=== PATIENT | male | born 1955 | race Caucasian/White ===

== ENCOUNTER → 2023-10-09 15:29 | Outpatient (REF) | payer MEDICARE, BC, SELFPAY | LOC: DHCBS HW 15:29 | PROVIDERS: ATTENDING PHYSICIAN Internal Medicine Cardiovascular Disease; FAMILY PHYSICIAN Internal Medicine | DX: Z01.818 Encounter for other preprocedural examination (principal); I50.30 Unspecified diastolic (congestive) heart failure; R06.02 Shortness of breath | CPT/HCPCS: 93306 ==

== ENCOUNTER → 2023-10-10 11:22 | Outpatient (REF) | payer MEDICARE, BC, SELFPAY | LOC: DHCBC/DCA 11:22 | PROVIDERS: ATTENDING PHYSICIAN Internal Medicine Cardiovascular Disease; FAMILY PHYSICIAN Internal Medicine | DX: Z01.818 Encounter for other preprocedural examination (principal); I50.30 Unspecified diastolic (congestive) heart failure; R06.02 Shortness of breath | CPT/HCPCS: 78452; 93017; A9500; J2785 ==

== ENCOUNTER 2025-08-09 21:45 | Inpatient (IN) | payer MEDICARE, SELFPAY ==
[2025-08-09 13:24] VITALS: BP 129/68
[2025-08-09 13:44] LABS: Hematocrit 37.2 % (39.0-52.0); Hemoglobin 11.6 g/dL (13.0-18.0); Mean Corp Hgb Conc. 31.2 g/dL (33.0-37.0); Mean Corpuscular Volume 74.3 fL (80.0-94.0); Nucleated Red Blood Cells % 0 % (-); Platelet Count 158 10^3/uL (130-400); Red Cell Dist. Width 18.2 % (11.5-14.5)
[2025-08-09 14:02] LABS: ALT (SGPT) 31 U/L (0-50); AST (SGOT) 27 U/L (17-59); Albumin 3.9 g/dl (3.5-5.0); Alkaline Phosphatase 101 U/L (38-126); Blood Urea Nitrogen 24 mg/dl (9-20); Calcium 8.6 mg/dl (8.4-10.2); Carbon Dioxide 22 mmol/L (22-30); Chloride 107 mmol/L (98-107); Glucose 236 mg/dl (70-99); Potassium 4.4 mmol/L (3.5-5.1); Sodium 135 mmol/L (135-145); Total Protein 6.5 g/dl (6.3-8.2); eGFR > 60.00
[2025-08-09 14:06] LABS: Troponin I < 0.012 ng/ml
--- NOTE | 2025-08-09 15:24 | ED.GENMED ---
History of Present Illness
General
Chief Complaint: Chest Pain
Source: patient
Exam Limitations: none
Time Seen by Provider: 08/09/25 15:04
Nursing documentation reviewed up to this point in time: agreed with
History of Present Illness
History of Present Illness:
Note:
CHIEF COMPLAINT(S)
Chest pain.
HISTORY OF PRESENT ILLNESS
The patient is a 70-year-old male with a history of cardiac stents placed previously. He presents with chest pain, reporting the onset as yesterday. He describes the pain as reminiscent of previous episodes when stents were placed. He denies any new
swelling in his legs but mentions they are 'always a little bit swollen.' There is no recent weight gain reported, but there is slight shortness of breath noted primarily in the morning. As of the current evaluation, he continues to experience chest
pain. The patient states it does not worsen with arm movement or positional change such as sitting up or lying back. He mentions having been short of breath upon walking today. His medical appliance maker, Dr. Kevin Lazo, was last seen some time ago, and the
patient had to cancel a recent appointment due to scheduling issues.
EXTERNAL RECORDS REVIEWED
According to current investigations, the patients electrocardiogram is normal, and initial blood work, despite showing a slightly elevated blood glucose level, appears normal overall.
PHYSICAL EXAM
General: Alert, no acute distress.
Cardiovascular: No new edema reported, normal cardiovascular findings.
Respiratory: Breath sounds are normal; lungs sound clear.
PLAN
The plan is to administer a full dose of aspirin and some nitroglycerin to assess its effect on the chest pain. The patient will also undergo a chest X-ray and a repeat of the relevant blood tests for further evaluation.
DIFFERENTIAL DIAGNOSIS
The Differential Diagnosis includes, in no particular order and is not limited to:
1. Acute Coronary Syndrome (ACS)
2. Stable Angina
3. Unstable Angina
4. Myocardial Infarction
5. Costochondritis
6. Gastroesophageal Reflux Disease (GERD)
7. Pulmonary Embolism
8. Aortic Dissection
9. Heart Failure
10. Anxiety-related chest pain
CARE-UPDATE
08/09/25 - 21:16
CT chest results indicate bilateral pulmonary embolism with mild clot burden and mild right ventricular strain. Initiated IV heparin therapy. Plan for admission under hospitalist care.
EKG
My independent EKG interpretation is:
- Time of EKG: Not specified
- Rhythm: Normal sinus rhythm
- Heart Rate: 72 beats per minute
- GA Interval: Normal
- QRS Duration: Normal
- QT Interval: Normal
- [place]: Normal
- ST Segment: Normal
- Abnormalities: None observed; normal EKG
Disposition:
SUMMARY OF ENCOUNTER
The patient, a 70-year-old male with a history of cardiac stents, presented to the emergency department with chest pain that began the previous day and shortness of breath upon exertion. His pain was described as similar to episodes experienced when
stents were placed. A CT chest scan confirmed the presence of bilateral pulmonary embolism with mild clot burden and mild right ventricular strain. The decision was made to initiate IV heparin therapy given the diagnosis. Despite the findings, the
patients vital signs remained stable with no indication for thrombolytic therapy at this time.
DISPOSITION
Admit to Intermediate Care Unit (IMU) for further monitoring and management.
ASSESSMENT
Bilateral pulmonary embolism with mild clot burden and mild right ventricular strain.
EMERGENCY TREATMENTS ADMINISTERED
IV heparin initiated.
PLAN
The patient is to be admitted to the Intermediate Care Unit for continuous monitoring and management of bilateral pulmonary embolism.
INDEPENDENT REVIEW OF LABS AND INTERPRETATION OF TESTS
My independent review of EKG shows normal sinus rhythm with a heart rate of 72 beats per minute, normal GA interval, normal QRS duration, normal QT interval, and no abnormalities observed; the EKG is normal.
My independent CT chest interpretation indicates bilateral pulmonary embolism with mild clot burden and mild right ventricular strain.
MEDICATION RECONCILIATION
Heparin administered intravenously for anticoagulation purposes.
MEDICAL DECISION MAKING
-Complexity of Data Reviewed: Chronic conditions affecting care include cardiac stents history. Differential Diagnosis includes Acute Coronary Syndrome, Stable Angina, Unstable Angina, Myocardial Infarction, Costochondritis, Gastroesophageal Reflux
Disease, Pulmonary Embolism, Aortic Dissection, Heart Failure, and Anxiety-related chest pain.
-Data:
Category 1
My independent interpretation of the CT chest confirms bilateral pulmonary embolism with mild clot burden and mild right ventricular strain.
-Risk:
Hospital admission was decided due to the complexity and risk associated with the confirmed diagnosis of bilateral pulmonary embolism.
DIAGNOSIS
Pulmonary embolism, bilateral (ICD-10: I26.09)
Phy Exam
Physical Exam
Physical Exam:
.
Scores
Heart Score for Chest Pain Patients
STEMI patient?: Not applicable
Course
Orders/Labs/Results
Orders:
Orders
08/09/25 13:17
Electrocardiogram (*1) Urgent
Reason for Study: Chest Pain
Cardiac Monitoring- Treatment ONCE
EKG- Treatment ONCE
IV Insert/Care/Rem.- Treatment PRN
O2 Therapy [RESP] Urgent
Titrate/Wean O2 to maintain O2 sat greater than (%): 90
Special Instructions: Maintain sats >/=90%
Pulse Ox/spot Check [RESP] Urgent
Quantity: 1
Special Instructions: ON ROOM AIR
08/09/25 13:34
Complete Blood Count/With Diff Urgent
Comprehensive Metabolic Panel Urgent
NT-proBNP Urgent
Comment: ADD ON
Troponin I Urgent
08/09/25 15:06
Add On- LAB Urgent
Tests Added?: pro bnp
08/09/25 15:07
CR Chest - 2 Views Urgent
Comment:
Reason For Exam: short of breath
08/09/25 15:53
Aspirin Chewable [Low Strength Aspirin] 324 mg PO NOW STA
Nitroglycerin Sublingual [Nitrostat (Sublingual)] 0.4 mg SL NOW STA
08/09/25 17:03
D-Dimer Urgent
08/09/25 18:44
CT Chest PE Study Urgent
Comment:
Reason For Exam: short of breath, ddimer elevated
08/09/25 21:12
PTT Urgent
Comment: Obtain baseline before beginning heparin infusion if not already collected
Heparin 9,000 units IV NOW STA
Pharmacy Request to Place See Dose Instructions PO NOW STA
Discontinue all Active Warfarin orders?: Yes
Nursing to Place Non Medication Order As Directed
Physician Order: PTT 6 hours after initial start of Heparin infusion
08/09/25 21:15
Heparin 59165 Units/250 ml 25,000 units in 250 ml IV PER PROTOCOL
Weight to be used for heparin protocol in kilograms (kg):: 112
Protocol:: DVT/PE
PTT Goal Range to be used:: PTT 73 to 111 seconds
Order type:: Initial
INITIAL Infusion Dose (UNITS/KG/hr) & then follow protocol:: 18 units/kg/hr
Infusion Dose in UNITS/hr & then follow protocol (UNITS/hr):: 2,000
INFUSION RATE in mL/hr & then follow protocol (mL/hr):: 20
For DVT/PE algorithm, re-bolus for low PTT?: Yes
PTT less than or equal to 64 seconds:: Re-bolus 80 units/kg (max 10,000units). Increase by 500 units/hr
(+ 5mL/hr)
PTT 64.1 to 72.9 seconds:: Re-bolus 40 units/kg (max 5,000 units). Increase by 200 units/hr
(+ 2mL/hr)
PTT 73 to 111 seconds:: Target Range. No change in rate.
PTT 111.1 to 130.9 seconds:: Decrease rate by 200 units/hr (- 2 mL/hr)
PTT 131 to 199.9 seconds:: HOLD for 1 hr. Then decrease by 400 units/hr (- 4mL/hr)
PTT greater than or equal to 200 seconds:: HOLD for 2 hrs & Notify Provider. Then decrease by 500 units/hr
(- 5mL/hr)
Lab follow-up:: Each change, PTT q6h until 2 consecutive are therapeutic. Then
PTT daily.
08/09/25 22:[address] See Dose Instructions IV DIRECTED
Abnormal Lab Results
08/09/25 08/09/25
13:34 17:03
Hgb 11.6 L g/dL
(13.0-18.0)
Hct 37.2 L %
(39.0-52.0)
MCV 74.3 L fL
(80.0-94.0)
MCH 23.2 L pg
(27.0-31.0)
MCHC 31.2 L g/dL
(33.0-37.0)
RDW 18.2 H %
(11.5-14.5)
Absolute Neuts (auto) 6.7 H 10^3/uL
(1.4-6.5)
Absolute Lymphs (auto) 1.1 L 10^3/uL
(1.2-3.4)
Neutrophils % 79.9 H %
(42.2-75.2)
Lymphocytes % 13.2 L %
(20.5-51.1)
D-Dimer 2.02 H ug/mlFEU
(0.00-0.50)
BUN 24 H mg/dl
(9-20)
Glucose 236 H mg/dl
(70-99)
Total Bilirubin 1.4 H mg/dl
(0.2-1.3)
08/09/25 13:34
08/09/25 13:34
Vital Signs
Initial and Last Documented VS:
Initial Vital Signs
Temp Pulse Resp BP Pulse Ox
98.6 F 75 16 129/68 97
08/09/25 13:24 08/09/25 13:24 08/09/25 13:24 08/09/25 13:24 08/09/25 13:24
Last Documented Vital Signs
Temp Pulse Resp BP Pulse Ox
98.7 F 61 20 112/69 97
08/09/25 16:08 08/09/25 20:45 08/09/25 20:45 08/09/25 18:00 08/09/25 20:45
*Pulse Oximetry
SaO2: 97
Oxygen Mode of Delivery: Room air
Patient hypoxic: no
*Critical Care Note
Total Time (30-74mins, 75-104mins- exclusive of procedures): 30
comment:
Critical care statement: A total of 30 minutes of critical care time was provided for this patient. This includes management of unstable vital signs, evaluation of the patient at bedside, reviewing the patient's pertinent medical records, discussion
with consultants, review of old EKGs and review of pertinent medical records. This time with separate from time utilized to perform the aforementioned documented procedures
ED Attending Note
-
Portions of this chart may have been created with voice recognition software.� Occasional wrong word or��sound alike� substitutions may have occurred due to the inherent limitations of voice recognition software.
Discharge Plan
Departure
Patient Disposition: Admit
Date of Disposition: 08/09/25
Time of Disposition: 21:11
Admit to: IMU
Presentation/result/management discussed w/ accepting MD/DO: Hospitalist
Patient with high blood pressure during this ER visit?: Yes
Condition: Fair
Discharge Problem:
Pulmonary embolism, bilateral
Prescriptions:
No Action
Simponi ARIA 50 MG/4 ML solution
250 mg IV [id number]
prednisone 5 MG tablet
15 mg PO Q48H
prednisone 5 MG tablet
5 mg PO Q48H
aspirin 81 MG tablet,chewable
81 mg PO DAILY
latanoprost 0.005 % Drops
1 drp LEFT EYE HS
atorvastatin [Lipitor] 80 mg Tablet
80 mg PO DAILY
trazodone 100 mg Tablet
100 mg PO HS
magnesium oxide 500 mg magnesium Tablet
500 mg PO HS
gabapentin 300 mg Capsule
300 mg PO HS
nebivolol [Bystolic] 5 mg Tablet
5 mg PO DAILY
Jardiance 10 mg Tablet
10 mg PO DAILY
pantoprazole 40 MG tablet,delayed release (DR/EC)
40 mg PO DAILY
Theragen Tablet
1 tab PO DAILY
Referrals:
VINH ABDALLA, DO [Family Provider]
Interventions
Interventions:
*Risk Screen - Suicide Last Done: 08/09/25 13:24
*General Assessment Last Done: 08/09/25 16:05
*Neglect/Abuse Screening Last Done: 08/09/25 16:06
*ED COVID-19 Vaccine History Last Done: 08/09/25 16:05
*ED Influenza Vaccine History Last Done: 08/09/25 16:05
[facility] Fall Risk Assessment Tool Last Done: 08/09/25 17:31
ED- Cardiac Assessment Last Done: 08/09/25 16:05
Discharge Date and Time
Print Language: EGYPTIAN
[2025-08-09] MEDS: LOW STRENGTH ASPIRIN 324 MG PO (16:01)
[2025-08-09] MEDS: NITROSTAT (SUBLINGUAL) 0.4 MG SL (16:01)
[2025-08-09 16:02] VITALS: BP 108/49
[2025-08-09 16:04] VITALS: BMI 33.5
[2025-08-09 17:00] VITALS: BP 106/67
[2025-08-09 17:35] LABS: D-Dimer 2.02 ug/mlFEU (0.00-0.50)
[2025-08-09 18:00] VITALS: BP 112/69
--- NOTE | 2025-08-09 21:33 | HPS.HSE ---
Family Physician
-
Family Physician: VINH ABDALLA DO
Chief Complaint
-
chest pain
History of Present Illness
70 male history of CAD s/p PCI, RA, HLD, GERD presents with a 2-day history of constant chest discomfort that is left-sided radiating into his left shoulder and armpit region. Dull ache worse with inspiration. Not relieved by analgesics. Tells me
3 weeks ago received COVID-19 vaccine made by [employer].
CT PE completed demonstrating bilateral pulmonary embolism with mild right heart strain. Troponin and BNP negative/low. Nontachycardic and not hypoxic. Started on heparin drip
Medical History
Past Medical History
Past Medical History: Reports CAD and GERD
Past Surgical History: Reports Other
Social History
Alcohol: None
Family History
Family History: Not pertinent
Allergies / Home Medications
Allergies reflects when Allergies were last updated in [facility].
Home Medications with original date entered in [facility]
Allergy/Medication List:
Allergies
Allergy/AdvReac Type Severity Reaction Status Date / Time
Sulfa (Sulfonamide Allergy Rash Verified 08/09/25 13:27
Antibiotics)
Home Medications
golimumab 12.5 mg/mL intravenous solution (Simponi ARIA) 250 mg IV [id number] 05/27/19
aspirin 81 mg chewable tablet 81 mg PO DAILY Blood Clot Prevention/Tx 09/14/21
prednisone 5 mg tablet 5 mg PO Q48H 09/14/21
prednisone 5 mg tablet 15 mg PO Q48H 09/14/21
atorvastatin 80 mg tablet (Lipitor) 80 mg PO DAILY High Cholesterol 08/09/25
empagliflozin 10 mg tablet (Jardiance) 10 mg PO DAILY 08/09/25
gabapentin 300 mg capsule 300 mg PO HS Neurological Condition 08/09/25
latanoprost 0.005 % eye drops 1 drp LEFT EYE HS Eye Condition 08/09/25
magnesium oxide 500 mg PO HS Supplement 08/09/25
nebivolol 5 mg tablet (Bystolic) 5 mg PO DAILY Heart Disease/Condition 08/09/25
pantoprazole 40 mg tablet,delayed release 40 mg PO DAILY Gastrointestinal Issue 08/09/25
therapeutic multivitamin 1 tab PO DAILY Supplement 08/09/25
trazodone 100 mg tablet 100 mg PO HS Sleep 08/09/25
Review of Systems
-
A 12 point ROS was completed and negative except as noted: Yes
Physical Exam
Vital Signs
Vital Signs
Temp Pulse Resp BP Pulse Ox
98.7 F 61 20 112/69 97
08/09/25 16:08 08/09/25 20:45 08/09/25 20:45 08/09/25 18:00 08/09/25 20:45
Physical Exam
General: Well Developed, Well Nourished and No Apparent Distress
HEENT: NormoCephalic and Moist mucous membranes; No Anicteric
Respiratory: Clear; No Wheezes, Rales or Rhonchi
Cardiac: S1/S2 and Regular Rhythm
GI: Soft, Non Tender and Non Distended
Musculoskeletal: No No Clubbing or No Cyanosis
Skin: Warm and Dry
Neuro: Awake and AO x 3
Hematologic/Lymphatic: No Lymphadenopathy
Psych: Calm
Laboratory Results
-
08/09/25 13:34
08/09/25 13:34
Laboratory Results
Total Bilirubin 1.4 mg/dl (0.2-1.3) H 08/09/25 13:34
AST 27 U/L (17-59) 08/09/25 13:34
ALT 31 U/L (0-50) 08/09/25 13:34
Alkaline Phosphatase 101 U/L (38-126) 08/09/25 13:34
Troponin I < 0.012 ng/ml 08/09/25 13:34
Impression/Plan
-
Acute unprovoked pulmonary embolism
? Related to COVID-19 Moderna vaccine
Will need outpatient hematology follow-up for hypercoagulable workup in 3 months
Heparin drip
As there is evidence of mild right heart strain will obtain 2D echocardiogram
Likely can transition to Eliquis/Xarelto tomorrow
Will consult case management for pricing
CAD s/p PCI
Continue aspirin statin Bystolic
GERD
Protonix
RA
Prednisone
Scheduled to receive Simponi infusion tomorrow will need to be rescheduled
Full Code
DVT ppx Hep gtt
[2025-08-09] MEDS: HEPARIN 9000 UNITS IV (21:43)
[2025-08-09] MEDS: HEPARIN 25000 UNITS/250 ML IV (21:44)
[2025-08-09 21:51] LABS: APTT 27.9 Sec (23.4-35.0)
[2025-08-09 23:27] VITALS: BP 150/80; BMI 33.3
[2025-08-10] MEDS: LIPITOR 80 MG PO ×2 (00:06→17:34)
[2025-08-10] MEDS: NEURONTIN 300 MG PO ×2 (00:06→20:59)
[2025-08-10] MEDS: DESYREL 100 MG PO ×2 (00:07→20:59)
[2025-08-10] MEDS: MAGNESIUM OXIDE 400 MG PO ×2 (00:07→20:59)
[2025-08-10 03:02] VITALS: BP 106/62
[2025-08-10 03:57] LABS: Hematocrit 32.4 % (39.0-52.0); Hemoglobin 10.2 g/dL (13.0-18.0); Mean Corp Hgb Conc. 31.5 g/dL (33.0-37.0); Mean Corpuscular Volume 74.8 fL (80.0-94.0); Platelet Count 143 10^3/uL (130-400); Red Cell Dist. Width 17.8 % (11.5-14.5)
[2025-08-10 04:18] LABS: Blood Urea Nitrogen 19 mg/dl (9-20); Calcium 8.2 mg/dl (8.4-10.2); Carbon Dioxide 26 mmol/L (22-30); Chloride 108 mmol/L (98-107); Estimated Creatinine Clearance > 125 ml/min; Glucose 162 mg/dl (70-99); Potassium 3.7 mmol/L (3.5-5.1); Sodium 137 mmol/L (135-145); eGFR > 60.00
[2025-08-10 04:26] LABS: APTT > 200 Sec (23.4-35.0)
[2025-08-10 08:51] VITALS: BP 115/63
[2025-08-10] MEDS: DELTASONE 5 MG PO (09:33)
[2025-08-10] MEDS: PROTONIX 40 MG PO (09:33)
[2025-08-10] MEDS: FARXIGA 10 MG PO (09:33)
--- NOTE | 2025-08-10 10:07 | CM ---
CM consulted for Eliquis coverage/pricing (10mg BID x7 days, followed by 5 mg BID)
Patient has [facility] Rx plan. CM placed call to [facility], Eliquis covered.
30 day supply co pay of $105, 90 day mail order co pay of $309
CM was informed patient has a max quantity of twice a day, anything more than that requires a prior auth ([phone])
Updated current hospitalist as previous hospitalist placed the order
--- NOTE | 2025-08-10 11:05 | CON.PUL ---
Consultation
Consultation Request
Date/Time Consultation Requested: 08/10/2025-10 AM
Date/Time Consultation Performed: 08/10/2025-10:30 AM
Requesting Provider: Hospitalist
Performing Provider: Dr. Yo
Reason for Consultation: Shortness of breath/pulm embolism
Medical History
-
Chief Complaint: Shortness of breath
History of Present Illness:
70-year-old nonsmoking somewhat sedentary male with a history of CAD/stent, rheumatoid arthritis, hyperlipidemia and GERD, presented with left-sided chest discomfort as well as shortness of breath, recently had covid mRNA vaccine 3 weeks prior found
to have pulmonary emboli-pulmonary consulted for pulmonary embolism 08/10/25. The patient feels improved. He's been placed on a heparin drip. Denies any shortness of breath at rest but does have some chest discomfort that is made worse with deep
inspiration but not pleuritic, left anterior. Denies any abdominal pain, nausea, increased Leg swelling from his baseline or focal weakness.
Past Medical History
Past Medical History: None ( CAD/stent. Hyperlipidemia. GERD. RA. Obesity.)
Social History
Tobacco: Non-smoker
Alcohol: None
Drug: None
Personal:
Living: With Family
Occupational Exposures: no known asbestos exposure
Environmental Exposures: No known tuberculosis exposure
Family History
Family History: Reviewed & Not Pertinent (No family history of clots)
Allergies / Home Medications
Allergies
Allergy/AdvReac Type Severity Reaction Status Date / Time
Sulfa (Sulfonamide Allergy Rash Verified 08/09/25 13:27
Antibiotics)
Home Medications
�Medication �Instructions �Recorded �Confirmed �Last Taken �Type
golimumab 12.5 mg/mL intravenous 250 mg IV [id number] 05/27/08/09/25 2 Months Ago History
solution (Simponi ARIA) ~06/09/25
aspirin 81 mg chewable tablet 81 mg PO DAILY Blood Clot 09/14/21 08/09/25 08/09/25 History
Prevention/Tx
prednisone 5 mg tablet 5 mg PO Q48H 09/14/21 08/09/25 08/08/25 History
prednisone 5 mg tablet 15 mg PO Q48H 09/14/21 08/09/25 08/09/25 History
atorvastatin 80 mg tablet (Lipitor) 80 mg PO DAILY High Cholesterol 08/09/25 08/09/25 08/09/25 History
empagliflozin 10 mg tablet 10 mg PO DAILY 08/09/25 08/09/25 08/09/25 History
(Jardiance)
gabapentin 300 mg capsule 300 mg PO HS Neurological Condition 08/09/25 08/09/25 08/08/25 History
latanoprost 0.005 % eye drops 1 drp LEFT EYE HS Eye Condition 08/09/25 08/09/25 08/08/25 History
magnesium oxide 500 mg PO HS Supplement 08/09/25 08/09/25 08/08/25 History
nebivolol 5 mg tablet (Bystolic) 5 mg PO DAILY Heart 08/09/25 08/09/25 08/09/25 History
Disease/Condition
pantoprazole 40 mg tablet,delayed 40 mg PO DAILY Gastrointestinal 08/09/25 08/09/25 08/09/25 History
release Issue
therapeutic multivitamin 1 tab PO DAILY Supplement 08/09/25 08/09/25 08/09/25 History
trazodone 100 mg tablet 100 mg PO HS Sleep 08/09/25 08/09/25 08/08/25 History
Review of Systems
-
Unable to Obtain full review of systems at this time due to: Other ( per HPI)
Vitals / Labs / Diagnostic Testing
Vital Signs
Temp Pulse Resp BP Pulse Ox
98.2 F 65 16 115/63 97
08/10/25 08:51 08/10/25 08:51 08/10/25 08:51 08/10/25 08:51 08/10/25 08:51
Lab Data
08/10/25 03:50
08/10/25 03:50
Laboratory Results
08/09/25 08/10/25
21:35 03:50
APTT 27.9 > 200 H*
Diagnostic Testing:
Physical Exam
-
Exam:
Well-nourished and well-developed in no apparent distress
HEENT-atraumatic, normocephalic
Neck-supple, no JVD, no bruit
Heart regular without increased P2 or RV heave
Chest-clear to auscultation, no wheezes, crackles
Back-no tenderness
Abdomen-soft, nontender, nondistended, no hepatosplenomegaly
Extremities-no cyanosis, clubbing, trace lower extremity edema-reportedly chronic, negative Homans
Integument-intact, no rashes, lesions or ecchymosis
Neurology-alert and oriented, nonfocal motor and sensory exam
Assessment
-
70-year-old nonsmoking somewhat sedentary male with a history of CAD/stent, rheumatoid arthritis, hyperlipidemia and GERD, presented with left-sided chest discomfort as well as shortness of breath, recently had covid mRNA vaccine 3 weeks prior found
to have pulmonary emboli-pulmonary consulted for pulmonary embolism 08/10/25.
Unprovoked bilateral pulmonary emboli with some right ventricular strain.
[id number] I-low risk
Normal Troponin and proBNP
Mild microcytic anemia-hemoglobin 10.2.
Hyperglycemia.
Conditions present prior to admission:
CAD/stent.
Hyperlipidemia.
GERD.
RA.
Obesity.
Plan
Patient will be admitted to Telemetry
Supplemental oxygen as needed
Aspiration precautions
Incentive spirometry encouraged
CT chest personally reviewed-. See below.
Echocardiogram reviewed and summarized below-no significant right ventricular strain
Check lower extremity ultrasound
Pulmonary emboli unprovoked-likely will need hypercoagulable workup
Full PESI score summarized above
Heparin drip or Lovenox 1 mg/kg every 12 hours
Benefits and risks of thrombolytics therapy were reviewed -risks outweigh benefits-no tachycardia, hypotension, syncope, troponin. ProBNP normal without significant right ventricular strain
Bedrest �24 hours
Follow hemoglobin
Consider iron studies.
Heme test stools.
Monitor blood sugar.
Check A1c.
Insulin supplementation as needed
DVT prophylaxis-on full anticoagulation-heparin with conversion to Eliquis the next 24 hours
Early nutrition
Early mobilization
Outpatient pulmonary follow-up
Outpatient appropriate malignancy screening including colonoscopy and prostate exam
Critical care statement: A total of 55 minutes of critical care time was provided for this patient today. This includes management of unstable vital signs, evaluation for thrombolytic therapy, management of large pulmonary embolism, evaluation of
the patient at bedside, reviewing the patient's pertinent medical records including radiographs, microbiology, laboratory evaluations, and discussion with primary team, consultants, pharmacy, and critical care nursing.
Diagnostic data:
Chest x-ray 08/09/25-NAD.
CT chest 08/09/25-. Bilateral lower lobe pulmonary emboli, small to moderate overall clot burden, mild right ventricular heart strain suspected, basilar atelectasis
Echocardiogram 08/10/25-EF 55-60%, normal right ventricular systolic function, mild aortic regurgitation
Data Reviewed
-
EKG: Report reviewed by me
Radiology: Image personally visualized and interpreted and Report reviewed by me
CT Scan: Image personally visualized and interpreted and Report reviewed by me
Medical Tests (Nuc Med, Echo etc): Report reviewed by me
Labs: Labs reviewed by me
Old Records: Reviewed
Total Time Spent with Patient (in minutes): 55
--- NOTE | 2025-08-10 11:23 | CM ---
Patient seen bedside, initial assessment completed. Patient is a 70 male history of CAD s/p PCI, RA, HLD, GERD presents with a 2-day history of constant chest discomfort.
Patient resides w/ spouse in a 2STH, 2 steps to enter. Patient is independent in all areas. Uses CPAP at night, has additional grab bar and shower chair in bathroom. Patient drives. No SNF/HC hx. OP PT for hip, just finished in July.
Address, point of contact and insurance verified
PCP: Carissa Tucker
Pharmacy: [facility]
CM reviewed Eliquis coverage w/ patient. CM to provide Eliquis coupon prior to d/c
Plan: Home, no needs anticipated at this time
[2025-08-10 12:00] VITALS: BP 103/59
--- NOTE | 2025-08-10 13:04 | W.PN.HOSP.TC ---
Today's Communication/Plan
-
Monitor vital signs see plan
Continue heparin drip
Awaiting echo
Eventual DOAC
Pulmonary evaluation
Assessment / Plan
Assessment / Plan
General: Well Developed, Well Nourished and No Apparent Distress
HEENT: NormoCephalic and Moist mucous membranes; No Anicteric
Respiratory: Clear; No Wheezes, Rales or Rhonchi
Cardiac: S1/S2 and Regular Rhythm
GI: Soft, Non Tender and Non Distended
Neuro: Awake and AO x 3
Psych: Calm
Acute unprovoked pulmonary embolism
Unclear if this is related to COVID-19 Moderna vaccine
Will need outpatient hematology follow-up for hypercoagulable workup in 3 months
Continue Heparin drip; eventual DOAC
echo pending
The patient he does get cancer screening with his PCP. Advised him to follow-up with them soon outpatient
Pulmonary evaluation
CAD s/p PCI
Continue aspirin statin
hold bystolic since normotensive
GERD
Protonix
RA
Prednisone
Scheduled to receive Simponi infusion today will need to be rescheduled
Full Code
DVT ppx Hep gtt
Anticipated Discharge: Within 24 hours
Subjective/Interval History
-
Date of Service: August 10, 2025
denies pain
Objective Data
-
Labs:
Laboratory Results
08/10/25 08/10/25
03:50 12:44
WBC 7.1
Hgb 10.2 L
Hct 32.4 L
Plt Count 143
APTT > 200 H* Pending
Sodium 137
Potassium 3.7
Chloride 108 H
Carbon Dioxide 26
BUN 19
Creatinine 0.7
Glucose 162 H
Calcium 8.2 L
Vital Signs:
Vital Signs
Temp Pulse Resp BP Pulse Ox
98.4 F 72 16 103/59 98
08/10/25 12:00 08/10/25 12:00 08/10/25 12:00 08/10/25 12:00 08/10/25 12:00
I&O
08/09/25 08/10/25 08/11/25
06:59 06:59 06:59
Intake Total 240 / 240
Output Total 500 / 500
Balance -260 / -260
[2025-08-10 14:00] LABS: APTT > 200 Sec (23.4-35.0)
[2025-08-10] MEDS: HEPARIN 25000 UNITS/250 ML IV (14:34)
[2025-08-10 16:00] VITALS: BP 143/77
[2025-08-10 19:25] VITALS: BP 120/68
[2025-08-10] MEDS: XALATAN OPHTHALMIC SOLUTION 1 DROP LEFT EYE (21:00)
[2025-08-10 23:07] LABS: APTT 113.7 Sec (23.4-35.0)
[2025-08-10 23:37] VITALS: BP 120/75
[2025-08-11 03:00] VITALS: BP 134/73
[2025-08-11 05:59] LABS: Hematocrit 33.7 % (39.0-52.0); Hemoglobin 10.7 g/dL (13.0-18.0); Mean Corp Hgb Conc. 31.8 g/dL (33.0-37.0); Mean Corpuscular Volume 74.1 fL (80.0-94.0); Platelet Count 138 10^3/uL (130-400); Red Cell Dist. Width 17.8 % (11.5-14.5)
[2025-08-11 06:11] LABS: APTT 72.4 Sec (23.4-35.0)
[2025-08-11] MEDS: HEPARIN 4500 UNITS IV (06:25)
[2025-08-11 06:31] LABS: ALT (SGPT) 26 U/L (0-50); AST (SGOT) 25 U/L (17-59); Albumin 3.2 g/dl (3.5-5.0); Alkaline Phosphatase 93 U/L (38-126); Blood Urea Nitrogen 14 mg/dl (9-20); Calcium 8.5 mg/dl (8.4-10.2); Carbon Dioxide 24 mmol/L (22-30); Chloride 109 mmol/L (98-107); Estimated Creatinine Clearance > 125 ml/min; Glucose 121 mg/dl (70-99); Potassium 4.0 mmol/L (3.5-5.1); Sodium 137 mmol/L (135-145); Total Protein 5.6 g/dl (6.3-8.2); eGFR > 60.00
[2025-08-11 07:00] VITALS: BP 120/74
[2025-08-11] MEDS: DELTASONE 15 MG PO (09:16)
[2025-08-11] MEDS: FARXIGA 10 MG PO (09:16)
[2025-08-11] MEDS: PROTONIX 40 MG PO (09:17)
[2025-08-11] MEDS: ELIQUIS 10 MG PO ×2 (09:17→20:16)
--- NOTE | 2025-08-11 10:53 | W.PN.PUL.V3 ---
Today's Communication / Plan
-
.
Monitor epistaxis
Assess discharge supplemental oxygen needs.
Convert heparin to oral anticoagulant-treat for 3-6 months.
Outpatient hematology evaluation.
Outpatient pulmonary/sleep disorders evaluation
Assessment
-
70-year-old nonsmoking somewhat sedentary male with a history of CAD/stent, rheumatoid arthritis, hyperlipidemia and GERD, presented with left-sided chest discomfort as well as shortness of breath, recently had covid mRNA vaccine 3 weeks prior found
to have pulmonary emboli-pulmonary consulted for pulmonary embolism 08/10/25.
Unprovoked bilateral pulmonary emboli with some right ventricular strain.
[id number] I-low risk
Normal Troponin and proBNP
Mild microcytic anemia-hemoglobin 10.2.
Hyperglycemia. .
EB suspected.
Epistaxis
Conditions present prior to admission:
CAD/stent.
Hyperlipidemia.
GERD.
RA.
Obesity.
Plan
Respiratory status relatively stable
Supplemental oxygen as needed-Currently on room air.
Rest and exercise oximetry without significant desaturations
Incentive spirometry encouraged
Monitor epistaxis-told to humidify house
CT chest personally reviewed- see below.
Echocardiogram reviewed and summarized below-no significant right ventricular strain
Lower extremity ultrasound 08/10/25-no evidence for DVT bilaterally
Pulmonary emboli unprovoked-likely will need hypercoagulable workup
Full PESI score summarized above
Heparin drip or Lovenox 1 mg/kg every 12 hours-convert to oral anticoagulants for a minimum of 3-6 months
Follow hemoglobin
Consider iron studies.
Heme test stools.
Monitor blood sugar.
Check A1c.
Insulin supplementation as needed
DVT prophylaxis-on full anticoagulation-heparin with conversion to Eliquis the next 24 hours
Early nutrition
Early mobilization
Outpatient pulmonary/sleep disorders follow-up
Outpatient appropriate malignancy screening including colonoscopy and prostate exam
Diagnostic data:
Chest x-ray 08/09/25-NAD.
CT chest 08/09/25-. Bilateral lower lobe pulmonary emboli, small to moderate overall clot burden, mild right ventricular heart strain suspected, basilar atelectasis
Echocardiogram 08/10/25-EF 55-60%, normal right ventricular systolic function, mild aortic regurgitation
Subjective Data
-
Date of Service:
Date of Service: August 11, 2025
Chief Complaint: Pulmonary Follow Up and Dyspnea Follow Up
Subjective:
Episode of nosebleed, resolved, no complaints of worsened shortness of breath, still some vague anterior chest pains,
Review of Systems
General: Other ( per HPI)
Objective Data
Data Reviewed
Vital Signs / I&O:
Vital Signs
Temp Pulse Resp BP Pulse Ox
98.4 F 61 12 120/74 97
08/11/25 07:00 08/11/25 07:00 08/11/25 07:00 08/11/25 07:00 08/11/25 09:05
Intake and Output
08/10/25 08/11/25 08/12/25
06:59 06:59 06:59
Intake Total 1200 / 1200
Output Total 2100 / 2100
Balance -900 / -900
SaO2: 97
Physical Exam
General: Respiratory Distress (n) and Comfortable
HEENT: Normocephalic, Anicteric and Moist Mucous Membranes
Cardiovascular: Regular Rhythm
Respiratory: Wheeze (n), Crackles (n), Rhonchi (n), Non-Labored Respirations, Accessory Resp Muscle Use (n) and Stridor
GI: Soft, Non Distended and Non Tender
Neurology: Awake, Alert and No Motor Deficits
Skin: Warm, Good Color, Cyanosis (n), Jaundice (n) and Rash (n)
Labs/Micro/Reports
Lab Data
08/11/25 05:51
08/11/25 05:51
Laboratory Results
08/10/25 08/10/25 08/11/25
22:48 05:51
APTT > 200 H* 113.7 H 72.4 H
[2025-08-11 11:00] VITALS: BP 131/70
--- NOTE | 2025-08-11 12:25 | W.PN.HOSP.TC ---
Today's Communication/Plan
-
monitor vitals
see plan
now on eliquis
monitor closely for nose bleed
check left UE US
likely discharge today or tomorrow
Assessment / Plan
Assessment / Plan
General: Well Developed, Well Nourished and No Apparent Distress
HEENT: NormoCephalic and Moist mucous membranes; No Anicteric
Respiratory: Clear; No Wheezes, Rales or Rhonchi
Cardiac: S1/S2 and Regular Rhythm
GI: Soft, Non Tender and Non Distended
Neuro: Awake and AO x 3
Psych: Calm
Acute unprovoked pulmonary embolism
Unclear if this is related to COVID-19 Moderna vaccine
Will need outpatient hematology follow-up for hypercoagulable workup in 3 months
dc hep gtt; started eliwuis
echo without Acute abnormality
The patient he does get cancer screening with his PCP. Advised him to follow-up with them soon outpatient
Pulmonary following
home o2 eval to monitor o2 need and tachycardia
venous doppler neg for DVT
now complaining of sudden episode of nose bleed
stopped currently on its own. Given he is on blood thinner, will need to closely monitor
Left upper extremity swelling
Check left upper extremity ultrasound
CAD s/p PCI
Continue aspirin statin
hold bystolic since normotensive
GERD
Protonix
RA
Prednisone
Scheduled to receive Simponi infusion 08/10 will need to be rescheduled
Full Code
DVT ppx eliquis
Anticipated Discharge: Within 24 hours
Subjective/Interval History
-
Date of Service: August 11, 2025
complaining of nose bleed earlier
Objective Data
-
Labs:
Laboratory Results
08/11/25 08/11/25
05:51 12:30
WBC 5.5
Hgb 10.7 L
Hct 33.7 L
Plt Count 138
APTT 72.4 H Cancelled
Sodium 137
Potassium 4.0
Chloride 109 H
Carbon Dioxide 24
BUN 14
Creatinine 0.6 L
Glucose 121 H
Calcium 8.5
Total Bilirubin 1.1
AST 25
ALT 26
Alkaline Phosphatase 93
Vital Signs:
Vital Signs
Temp Pulse Resp BP Pulse Ox
98.6 F 67 16 131/70 98
08/11/25 11:00 08/11/25 11:00 08/11/25 11:00 08/11/25 11:00 08/11/25 11:00
I&O
08/10/25 08/11/25 08/12/25
06:59 06:59 06:59
Intake Total 1200 / 1200
Output Total 2099
Balance -900 / -900
[2025-08-11 15:00] VITALS: BP 121/74
--- NOTE | 2025-08-11 16:33 | PTCARENOTE ---
Pt AAO x3, VALERIO; OOB in room/to BR; lincoln well, no c/o weakness/dizziness. VSS. Telemetry:NSR. Pt with (+) edema of LUE and BLE. Pt c/o 'soreness' Lt arm from axilla to elbow; Dr. Chambers notified. Pt sent for US of LUE; results pending. Pt
refusing offer of pain med for Lt arm soreness. On room air- pulse ox 96%, pt with (+) CAUSEY, but states breathing is 'better'. Abd soft, lincoln PO well. Voiding in BR without difficulty. Resting in bed at present. Will continue to monitor.
[2025-08-11] MEDS: LIPITOR 80 MG PO (17:55)
[2025-08-11] MEDS: TYLENOL 650 MG PO (18:31)
[2025-08-11 19:47] VITALS: BP 108/77
[2025-08-11] MEDS: ULTRAM 25 MG PO (20:07)
[2025-08-11] MEDS: MAGNESIUM OXIDE 400 MG PO (20:13)
[2025-08-11] MEDS: XALATAN OPHTHALMIC SOLUTION 1 DROP LEFT EYE (20:14)
[2025-08-11] MEDS: NEURONTIN 300 MG PO (21:25)
[2025-08-11] MEDS: DESYREL 100 MG PO (21:25)
[2025-08-11 23:06] VITALS: BP 111/63
[2025-08-12 03:12] VITALS: BP 112/66
[2025-08-12 07:00] VITALS: BP 158/88
[2025-08-12 07:36] LABS: Hematocrit 36.8 % (39.0-52.0); Hemoglobin 11.3 g/dL (13.0-18.0); Mean Corp Hgb Conc. 30.7 g/dL (33.0-37.0); Mean Corpuscular Volume 77.1 fL (80.0-94.0); Platelet Count 150 10^3/uL (130-400); Red Cell Dist. Width 17.9 % (11.5-14.5)
[2025-08-12 08:10] LABS: ALT (SGPT) 26 U/L (0-50); AST (SGOT) 23 U/L (17-59); Albumin 3.4 g/dl (3.5-5.0); Alkaline Phosphatase 96 U/L (38-126); Blood Urea Nitrogen 14 mg/dl (9-20); Calcium 8.9 mg/dl (8.4-10.2); Carbon Dioxide 26 mmol/L (22-30); Chloride 107 mmol/L (98-107); Estimated Creatinine Clearance > 125 ml/min; Glucose 139 mg/dl (70-99); Potassium 4.3 mmol/L (3.5-5.1); Sodium 136 mmol/L (135-145); Total Protein 6.0 g/dl (6.3-8.2); eGFR > 60.00
[2025-08-12] MEDS: FARXIGA 10 MG PO (09:14)
[2025-08-12] MEDS: PROTONIX 40 MG PO (09:14)
[2025-08-12] MEDS: DELTASONE 5 MG PO (09:15)
[2025-08-12] MEDS: ELIQUIS 10 MG PO (09:15)
[2025-08-12] MEDS: ULTRAM 25 MG PO (09:49)
--- NOTE | 2025-08-12 10:39 | W.PN.PUL.V3 ---
Today's Communication / Plan
-
Wean oxygen
Increased activity.
Convert to oral anticoagulant.
Monitor for epistaxis recurrence..
Outpatient pulmonary follow-up
Assessment
-
70-year-old nonsmoking somewhat sedentary male with a history of CAD/stent, rheumatoid arthritis, hyperlipidemia and GERD, presented with left-sided chest discomfort as well as shortness of breath, recently had covid mRNA vaccine 3 weeks prior found
to have pulmonary emboli-pulmonary consulted for pulmonary embolism 08/10/25.
Unprovoked bilateral pulmonary emboli with some right ventricular strain.
[id number] I-low risk
Normal Troponin and proBNP
Mild microcytic anemia-hemoglobin 10.2.
Hyperglycemia. .
EB suspected.
Epistaxis
Conditions present prior to admission:
CAD/stent.
Hyperlipidemia.
GERD.
RA.
Obesity.
Plan
Respiratory status relatively stable
Supplemental oxygen as needed-Currently on room air.
Rest and exercise oximetry without significant desaturations
Incentive spirometry encouraged
Monitor epistaxis-told to humidify house-last episode [address] chest personally reviewed- see below.
Echocardiogram reviewed and summarized below-no significant right ventricular strain
Lower extremity ultrasound 08/10/25-no evidence for DVT bilaterally
Pulmonary emboli unprovoked-likely will need hypercoagulable workup
Full PESI score summarized above.
Convert anticoagulation to oral route
Follow hemoglobin-microcytic at 11.3
Consider iron studies.
Heme test stools.
Monitor blood sugar.
Check A1c.
Insulin supplementation as needed
DVT prophylaxis-on full anticoagulation-heparin with conversion to Eliquis the next 24 hours
Early nutrition
Early mobilization
Outpatient pulmonary/sleep disorders follow-up
Outpatient appropriate malignancy screening including colonoscopy and prostate exam
Diagnostic data:
Chest x-ray 08/09/25-NAD.
CT chest 08/09/25-. Bilateral lower lobe pulmonary emboli, small to moderate overall clot burden, mild right ventricular heart strain suspected, basilar atelectasis
Echocardiogram 08/10/25-EF 55-60%, normal right ventricular systolic function, mild aortic regurgitation
Subjective Data
-
Date of Service:
Date of Service: August 12, 2025
Chief Complaint: Pulmonary Follow Up and Dyspnea Follow Up
Subjective:
Complaints shortness of breath, chest pain, no significant dyspnea exertion,
Review of Systems
General: Other ( per HPI)
Objective Data
Data Reviewed
Vital Signs / I&O:
Vital Signs
Temp Pulse Resp BP Pulse Ox
98.2 F 63 16 158/88 100
08/12/25 07:00 08/12/25 07:00 08/12/25 07:00 08/12/25 07:00 08/12/25 07:00
Intake and Output
08/11/25 08/12/25 08/13/25
06:59 06:59 06:59
Intake Total 1200 / 1200 1850 / 1850
Output Total 2100 / 2100 525 / 525
Balance -900 / -900 1325 / 1325
SaO2: 100
Physical Exam
General: Respiratory Distress (n) and Comfortable
HEENT: Normocephalic, Anicteric and Moist Mucous Membranes
Cardiovascular: Regular Rhythm
Respiratory: Wheeze (n), Crackles (n), Rhonchi (n), Non-Labored Respirations, Accessory Resp Muscle Use (n) and Stridor
GI: Soft, Non Distended and Non Tender
Neurology: Awake, Alert and No Motor Deficits
Skin: Warm, Good Color, Cyanosis (n), Jaundice (n) and Rash (n)
Labs/Micro/Reports
Lab Data
08/12/25 07:18
08/12/25 07:18
Laboratory Results
08/11/25
12:30
APTT Cancelled
[2025-08-12 11:00] VITALS: BP 132/73
--- NOTE | 2025-08-12 11:47 | W.PN.HOSP.TC ---
Today's Communication/Plan
-
dc to home
Assessment / Plan
Assessment / Plan
Exam:
General: Well Developed, Well Nourished and No Apparent Distress
HEENT: Normocephalic and Moist mucous membranes; No Anicteric
Respiratory: Clear; No Wheezes, Rales or Rhonchi
Cardiac: S1/S2 and Regular Rhythm
GI: Soft, Non Tender and Non Distended
Neuro: Awake and AO x 3
Psych: Calm
Assessment:
Acute unprovoked pulmonary embolism
- CT: bilateral lower lobe pulmonary embolism. no RHS.
- dopplers negative
- Echo without acute abnormalities
- s/p hep drip; dc on Eliquis for 3-6 months
- OP hypercoag w/u with Hematology/Pulm. Also needs cancer screening with PCP
Nose bleed
- humidify air
- prn Saline
Left upper extremity swelling c/w chronic lymphedema
- left upper extremity ultrasound negative
CAD s/p PCI
- Continue aspirin statin
- continue bystolic since normotensive
GERD
- Protonix
RA
- Prednisone
- Scheduled to receive Simponi infusion 08/10 will need to be rescheduled
Code: Full
More than 30 minutes spent in discharge including
Final examination of the patient
Summarizing hospital stay
Instructions for continuing care to all relevant caregivers
Preparation of discharge records, prescriptions, and referral forms
Total time spent (in minutes): 41
Anticipated Discharge: Today
Subjective/Interval History
-
Date of Service: August 12, 2025
resting comfortably, no new complaints
Objective Data
-
Labs:
Laboratory Results
08/12/25
07:18
WBC 5.6
Hgb 11.3 L
Hct 36.8 L
Plt Count 150
Sodium 136
Potassium 4.3
Chloride 107
Carbon Dioxide 26
BUN 14
Creatinine 0.7
Glucose 139 H
Calcium 8.9
Total Bilirubin 1.0
AST 23
ALT 26
Alkaline Phosphatase 96
Vital Signs:
Vital Signs
Temp Pulse Resp BP Pulse Ox
98.2 F 63 16 158/88 100
08/12/25 07:00 08/12/25 07:00 08/12/25 07:00 08/12/25 07:00 08/12/25 10:39
I&O
08/11/25 08/12/25 08/13/25
06:59 06:59 06:59
Intake Total 1200 / 1200 1850 / 1850
Output Total 2100 / 2100 525 / 525
Balance -900 / -900 1325 / 1325
Data Reviewed
-
Total Time Spent with Patient (in minutes): 41
Labs: Labs Reviewed by me
--- NOTE | 2025-08-12 11:54 | W.DCSUMMARY ---
Discharge Summary
Discharge Data
Date of Admission: 08/09/25
Date of Discharge: 08/12/25
-
Pending Results: No
Hospital Course
70 y/o M, hx of CAD s/p PCI, RA, HLD, GERD presented to ER on 08/09 with L sided chest pain. An urgent CT in ER confirmed bilateral lower lobe PE without right heart strain. Echo did not show RV overload. Troponin was negative. Dopplers were
negative. Patient was started on IV heparin then transitioned to Eliquis. He will be on anticoagulation for 3-6 months. He will follow up with Pulmonary and also PCP For hypercoagulable workup. He also needs to stay current with age-Appropriate
malignancy screening. He did not require home O2.
Discharge Plan
-
Patient Disposition: Home (Routine Discharge)
Discharge Diagnosis/Procedures: Acute pulmonary embolism
Condition: Fair
Diet: Low Cholesterol
Activity: As tolerated
Driving Restrictions: As prior to admission
Bathing Restrictions: None
Activity Restrictions/Additional Instructions:
You need secondary workup for thromboembolism. Please follow-up with hematology/oncology outpatient
Referrals:
VINH ABDALLA DO [Family Provider, Internal Medicine] - in less than 1 week
Demetrius Yo MD [Active, Pulmonary Medicine] - in two to four weeks
Referral Note: Unprovoked bilateral pulmonary emboli, Sleep apnea suspected
Samir Guzmán MD [Active, Hematology / Oncology] - in two to three weeks
Prescriptions:
New
Eliquis 5 mg tablet
5 mg PO DIRECTED Qty: 74 0RF
Rx Instructions:
10mg BID x 7 days, then 5mg BID thereafter
Continued
Simponi ARIA 50 MG/4 ML solution
250 mg IV [id number]
prednisone 5 MG tablet
15 mg PO Q48H
prednisone 5 MG tablet
5 mg PO Q48H
aspirin 81 MG tablet,chewable
81 mg PO DAILY
latanoprost 0.005 % Drops
1 drp LEFT EYE HS
atorvastatin [Lipitor] 80 mg Tablet
80 mg PO DAILY
trazodone 100 mg Tablet
100 mg PO HS
magnesium oxide 500 mg magnesium Tablet
500 mg PO HS
gabapentin 300 mg Capsule
300 mg PO HS
nebivolol [Bystolic] 5 mg Tablet
5 mg PO DAILY
Jardiance 10 mg Tablet
10 mg PO DAILY
pantoprazole 40 MG tablet,delayed release (DR/EC)
40 mg PO DAILY
therapeutic multivitamin Tablet
1 tab PO DAILY
Discharge Orders:
Discharge Patient (As Directed); Ordered 08/12/25
Ordered By: Julito Bolden
Discharge Date and Time
Print Language: TANZANIAN
--- NOTE | 2025-08-12 12:02 | CM ---
Chart reviewed. Patient will discharge home today
Met w/ patient bedside, aware of discharge. Ave [address] provided
IMM verbally reviewed, copy provided, copy on chart
Plan: Home, no needs
[2025-08-12] MEDS: PREVNAR 20 0.5 ML IM (12:33)
== END 2025-08-12 13:18 | disposition home or self-care (01) | DRG 176 ==
LOC: 4 EAST ACU 21:45
PROVIDERS: Internal Medicine; ADMITTING PHYSICIAN Hospitalist; ATTENDING PHYSICIAN Internal Medicine; CONSULT PHYSICIAN Internal Medicine Critical Care Medicine; EMERGENCY PHYSICIAN Emergency Medicine; FAMILY PHYSICIAN Student in an Organized Health Care Education/Training Program
PROC: 3E0234Z Introduction of Serum, Toxoid and Vaccine into Muscle, Percutaneous Approach (ICD-10-PCS; 2025-08-12)
DX: I26.99 Other pulmonary embolism without acute cor pulmonale (principal); M06.9 Rheumatoid arthritis, unspecified; E78.00 Pure hypercholesterolemia, unspecified; K21.9 Gastro-esophageal reflux disease without esophagitis; I25.10 Atherosclerotic heart disease of native coronary artery without angina pectoris; D50.9 Iron deficiency anemia, unspecified; R73.9 Hyperglycemia, unspecified; E66.9 Obesity, unspecified; G47.33 Obstructive sleep apnea (adult) (pediatric); R04.0 Epistaxis; Z95.5 Presence of coronary angioplasty implant and graft; Z79.82 Long term (current) use of aspirin; Z79.52 Long term (current) use of systemic steroids; Z79.891 Long term (current) use of opiate analgesic; Z79.84 Long term (current) use of oral hypoglycemic drugs; Z88.2 Allergy status to sulfonamides; Z68.33 Body mass index [BMI] 33.0-33.9, adult; Z23 Encounter for immunization; Z79.899 Other long term (current) drug therapy
CPT/HCPCS: 71046; 71275; 80048; 80053; 82550; 83880; 84484; 85025; 85027; 85379; 85730; 90677; 93005; 93306; 93970; 93971; 99291; G0009; Q9967